=== PATIENT | male | born 1935 | race Caucasian/White ===

== ENCOUNTER → 2017-05-29 | Outpatient (CLI) | payer MEDICARE ==
[~2017-05-29] MED LIST: ADJUSTABLE COMM1 MIS; ASPI1TAB57 PO; ASPI81TA82 PO; BIOT10TA PO; CALC1TAB87 PO; CPMMACHINE; DIPH2.5T14 PO; FENO145T2 PO; FIBECHW2 CHEW; FLUT50SP EACH NARE; GLIM1TAB PO; HYDR-3366 PO; IPRA0.06 EACH NARE; LISI-363 PO; LISI-519 PO; MAPA500T PO; OMEP20TA PO; OMEP20TA93 PO; PROBCAP4 PO; SACC1CAP3 PO; TERA2CAP3 PO; TRAM50TA PO; VERA1TAB17 PO; VERA240T18 PO; VITA1000 PO; VITA200017 PO; WALKER WHEELS/F1 MIS; ZANT150T2 PO
[2017-05-29 08:33] LABS: HEMATOCRIT 40.7 % (39.0-51.0); MEAN CELL VOLUME 90.2 FL (80.0-100.0); MEAN CORPUSCULAR HEMOGLOBIN 30.8 PG (27.0-34.0); MEAN CORPUSCULAR HGB CONC 34.2 % (32.0-36.0); PLATELET COUNT 300 TH/MM3 (150-450); RED BLOOD COUNT 4.51 MIL/MM3 (4.50-5.90); RED CELL DISTRIBUTION WIDTH 14.1 % (11.6-17.2); REVIEW FLAG FINAL; WHITE BLOOD COUNT 6.7 TH/MM3 (4.0-11.0)
[2017-05-29 08:42] LABS: APTT (PATIENT) 26.3 SEC (24.3-30.1); PROTHROMBIN TIME - PATIENT 10.6 SEC (9.8-11.6)
[2017-05-29 09:07] LABS: POTASSIUM 4.4 MEQ/L (3.5-5.1)
[2017-05-29 09:08] LABS: BICARBONATE 25.7 MEQ/L (21.0-32.0)
[2017-05-29 14:23] LABS: BLOOD, URINE NEG (NEG); GLUCOSE,URINE NEG (NEG); HYALINE CAST, URINE 3 /lpf (RARE); KETONE, URINE NEG (NEG); NITRITE,URINE NEG (NEG); TRANSITIONAL EPI CELLS, URINE <1 /hpf; URINE COLOR YELLOW (YELLW/STRAW)
[2017-05-29 14:27] LABS: COMMENT (UR) CULT NOT INDICATED; CULTURE IF INDICATED CULT NOT INDICATED
--- NOTE | 2017-05-29 21:23 | EKG ---
Date Performed: 05/29/2017 Time Performed: 08:07:14 PTAGE: 82 years EKG: Sinus rhythm WITH FIRST DEGREE AV BLOCK ABNORMAL ECG PREVIOUS TRACING : 01/12/2012 09.30 Compared to prior tracing no significant change DOCTOR: Debbie Romero Interpretating Date/Time 05/29/2017 21:22:14
== END ==
LOC: CPRE 07:45
PROVIDERS: ATTEND Surgery
DX: Z01.810 Encounter for preprocedural cardiovascular examination (principal); Z01.812 Encounter for preprocedural laboratory examination; Z79.01 Long term (current) use of anticoagulants; R94.31 Abnormal electrocardiogram [ECG] [EKG]
CPT/HCPCS: 36415; 80051; 81001; 85027; 85610; 85730; 93005

== ENCOUNTER 2017-06-04 05:22 | Inpatient (IN) | payer MEDICARE ==
--- NOTE | 2017-05-30 11:09 | MH ---
cc: Lindy WAYNE M.D. DATE OF ADMISSION: 06/04/2017 PREOPERATIVE DIAGNOSIS Osteoarthritic degeneration left knee, now being admitted for left total knee arthroplasty. HISTORY OF PRESENT ILLNESS This is a pleasant 82-year-old male who is being admitted today for left total knee arthroplasty due to severe painful osteoarthritic degeneration left knee. OTHER PAST HISTORY 1. He has had a right total knee done in the past. 2. History of tonsillectomy. 3. Arthroscopic surgery on his knees as well. 4. He has a history of hypertension. 5. Dizziness. 6. Arthritis. MEDICATION 1. He currently takes lisinopril 2. Verapamil 3. Tramadol for pain 4. Ipratropium bromide 5. Fluticasone 6. Fenofibrate 7. Baby aspirin a day. REVIEW OF SYSTEMS Noncontributory. FAMILY HISTORY Noncontributory. SOCIAL HISTORY He does not smoke. Drinks maybe two to three times a weekend. ALLERGIES SULFA. PHYSICAL EXAMINATION GENERAL: We find a 82-year-old male, well-developed, well-nourished, oriented x3, complaining of pain in his left VITAL SIGNS: Blood pressure 132/80, pulse 70 and regular, respirations 18, temperature 97.7, pulse oximetry 98% on room air. HEENT: Eyes PERRLA, EOMI. Ears, nose, mouth clear. NECK: Supple. LUNGS: Clear. HEART: Regular rate. ABDOMEN: Soft. Positive bowel sounds. Nontender. EXTREMITIES: Reveals his left knee to have crepitance on range of motion, lacks 5 degrees short of full extension at 90 degrees of flexion. Neurovascularly intact to his toes. IMPRESSION AT THIS TIME Severe painful osteoarthritic degeneration, left knee. PLAN Admission for left total knee arthroplasty today. The patient understands the procedure well and was given prescription for postoperative pain and anticoagulation control in the office. Understands the use of Hibiclens scrub and Bactroban preoperatively and plans on going home after surgical stay in the hospital. MD OLGA Francis/VALERIA /10:53 AM /10:58 AM
[~2017-06-04 05:22] MED LIST changes: -ADJUSTABLE COMM1 MIS; -ASPI81TA82 PO; -CPMMACHINE; -FIBECHW2 CHEW; -GLIM1TAB PO; -HYDR-3366 PO; -LISI-363 PO; -OMEP20TA PO; -PROBCAP4 PO; -TERA2CAP3 PO; -VERA240T18 PO; -VITA200017 PO; -WALKER WHEELS/F1 MIS
[2017-06-04] MEDS ORDERED: SODIUM CHLOR 0.9% 250 ML INJ 250 ML ONE (05:57)
[2017-06-04] MEDS ORDERED: VANCOMYCIN HCL 1000 MG VIAL ONE (05:57)
[2017-06-04] MEDS ORDERED: CHLORHEXIDINE GLUCONATE 4% SOLN 120 ML BTL TOPICAL SCH (06:15)
[2017-06-04] MEDS ORDERED: VANCOMYCIN 1000 MG/NS 250 ML (for <70 kg) IV SCH ×2 (06:15)
[2017-06-04] MEDS ORDERED: METOPROLOL TARTRATE 25 MG TAB PO PRN (06:15)
[2017-06-04] MEDS ORDERED: CHLORHEXIDINE GLUCONATE 2 % 1 PACK (2 CLOTHS) TOPICAL PRN (06:15)
[2017-06-04] MEDS ORDERED: ceFAZolin 2 GM PREMIX 50 ML IV SCH (06:15)
[2017-06-04] MEDS ORDERED: POVIDONE IODINE 5% (ANTISEPSIS KIT) 4 APPLICATIONS EACH NARE PRN (06:15)
[2017-06-04] MEDS ORDERED: LACTATED RINGER'S 1000 ML IV PRN (06:15)
[2017-06-04] MEDS ORDERED: ceFAZolin INJ 1,000 MG VIAL ONE (06:48)
[2017-06-04] MEDS ORDERED: BUPIVACAINE LIPOSOME PF 1.3% 20 ML VIAL ONE (07:16)
[2017-06-04] MEDS ORDERED: DIPHENOXYLATE/ATROPINE 2.5 MG/0.025 MG TAB PO PRN (07:45)
--- NOTE | 2017-06-04 07:53 | HHI.FF ---
Face to Face Verification Diagnosis: (1) Status post total left knee replacement Physical Therapy Gait training Knee: Total knee, Protocol: Left, Full weight bearing Canvas Knee Splint: When in bed & 2 pillows btw thighs Nursing RN: 3 days/week x 2 weeks Nursing: Dressing changes Dressing Changes: Daily dressing change, 4x4s, Gauze, Paper tape I have seen patient Jose Eduardo Cabral on 06/04/17. My clinical findings support the need for the requested home health care services because: Limited ability to care for self High risk of falls I certify that my clinical findings support that this patient is homebound because: Unsteady gait/balance Lindy Lopez MD Jun 04, 2017 07:53
[2017-06-04] MEDS ORDERED: ADJUSTABLE COMM1 MIS (07:55)
[2017-06-04] MEDS ORDERED: WALKER WHEELS/F1 MIS (07:56)
[2017-06-04] MEDS ORDERED: CPMMACHINE (07:56)
[2017-06-04] MEDS ORDERED: ONDANSETRON HCL 4 MG/2 ML VIAL IVP PRN (08:00)
[2017-06-04] MEDS ORDERED: SODIUM CHLORIDE 0.9% FLUSH 5 ML FLUSH IVF PRN (08:00)
[2017-06-04] MEDS ORDERED: TEMAZEPAM 15 MG CAP PO PRN (08:00)
[2017-06-04] MEDS ORDERED: MORPHINE SULFATE 4 MG/ML INJ IV PUSH PRN (08:00)
[2017-06-04] MEDS ORDERED: NALOXONE HCL 0.4 MG/ML AMP IV PUSH PRN (08:00)
[2017-06-04] MEDS ORDERED: ACETAMINOPHEN 325 MG TAB PO PRN (08:00)
[2017-06-04] MEDS ORDERED: Post-op Orders (for Pharmacy) MISC XX ONE (08:00)
[2017-06-04] MEDS ORDERED: EXPAREL PERI-ARTICULAR INJECTION (TOTAL VOL. 100 ML) P-ARTICULR SCH ×2 (08:00)
[2017-06-04] MEDS ORDERED: TRANEXAMIC ACID INJ 905 MG in SODIUM CHLORIDE 0.9% INJ 100 ML IV SCH ×2 (08:00→11:00)
[2017-06-04] MEDS ORDERED: TRANEXAMIC ACID INJ 0 MG in SODIUM CHLORIDE 0.9% INJ 100 ML IV SCH (08:00)
[2017-06-04] MEDS ORDERED: KETAMINE HCL 500 MG/5 ML VIAL ONE (08:51)
[2017-06-04] MEDS ORDERED: DEXAMETHASONE SOD PHOS 4 MG/ML VIAL ONE (08:53)
[2017-06-04] MEDS: SODIUM CHLORIDE 0.9% FLUSH 5 ML FLUSH IVF SCH ×2 (09:00→21:47)
[2017-06-04] MEDS ORDERED: NON-FORMULARY DRUG (Biotin 10 MG) PO SCH (09:00)
[2017-06-04] MEDS ORDERED: NON-FORMULARY DRUG (Saccharomyces Boulardii (Probiotic) 250 MG) PO SCH (09:00)
[2017-06-04] MEDS: PANTOPRAZOLE SOD 20 MG DELAYED RELEASE TAB PO SCH (09:45)
[2017-06-04] MEDS ORDERED: IPRATROPIUM NASAL PRN (09:45)
[2017-06-04] MEDS ORDERED: PROPOFOL 500 MG/50 ML INJ 50 ML ONE (09:54)
[2017-06-04] MEDS: ASPIRIN EC 81 MG TABEC PO SCH (10:00)
[2017-06-04] MEDS: FLUTICASONE PROPIONATE 50 MCG/ACT 16 GM NASAL SPRAY EACH NARE SCH (10:00)
[2017-06-04] MEDS: LISINOPRIL 5 MG TAB PO SCH ×2 (10:00→21:48)
[2017-06-04] MEDS: FENOFIBRATE 145 MG TAB PO SCH (10:00)
[2017-06-04] MEDS: CALCIUM/VITAMIN D 250 MG/125 U TAB PO SCH (10:00)
[2017-06-04] MEDS: CHOLECALCIFEROL (VIT D3) 1000 UNIT TAB PO SCH (10:00)
[2017-06-04] MEDS: VERAPAMIL HCL 240 MG SUSTAINED RELEASE TAB PO SCH (10:00)
[2017-06-04] MEDS: LACTATED RINGER'S 1000 ML INJ 1,000 ML IV SCH ×2 (11:05→21:48)
[2017-06-04] MEDS ORDERED: *morphine SULFATE 8 MG/ML PERIprocedure ONLY ONE (11:09)
--- NOTE | 2017-06-04 11:10 | MP ---
cc: Lindy LOPEZ M.D. DATE OF SURGERY 06/04/2017 PREOPERATIVE DIAGNOSIS Osteoarthritic degeneration left knee. POSTOPERATIVE DIAGNOSIS Osteoarthritic degeneration left knee. SURGERY PERFORMED Left total knee arthroplasty. COMPONENTS USED Consensus components with Bespoke protocol, size 5 femur, 4 tibia, 3 patella, 10 insert with one drain utilized and two batches of DePuy cement. SURGEON Dr. Lopez C CONSULTANT Rasheeda Vieira, FAHAD ANESTHESIA Spinal block PROCEDURE After successful induction of anesthesia, the patient is placed on the operating room table in the supine position. The knee is prepped and draped in the usual manner. A tourniquet is inflated at the upper thigh and set to 300 mmHg pressure after exsanguination of the lower extremity. A longitudinal incision is made extending from 3 inches proximal to the superior pole of the patella, across the patella in longitudinal fashion, and down past the insertion of the tibial tubercle into the proximal tibia. The incision is carried down through subcutaneous tissue along the medial aspect of the patella and retinaculum, down through the capsule to expose the knee joint. The patella and patellar tendon are freed up enough to allow the patella to be inverted and retracted off the lateral side of the knee joint. The knee joint is left exposed. Small osteophytes are removed. All soft tissue is removed to allow proper position of the femoral and tibial cutting jig guide. The first femoral jig is then inserted along the distal end of the femur after first measuring to decide whether this is a small, medium, or large component. The notch is then drilled and the tibial cutting guide inserted into the femoral cutting guide, along with the ankle brace to allow for proper measurement of the tibial cutting surface that needed to be resected. Pins are inserted into the tibial cutting jig and femoral cutting jig to hold them in place. An oscillating saw is then used to resect the surface of the tibia. The surface of the tibia is then completely removed using sharp and blunt dissection. The anterior and posterior cuts of the femur are then made as well using an oscillating saw through the cutting guide. All guides are then removed and the varus/valgus angulation cutting guide applied to the femur for proper measurement of the proper amount of valgus. The anterior cutting guide for the femur is then inserted at the anterior femoral cuts made. Next, the first block trial is inserted into the femur to allow for proper condyle drill holes to be made which are then made followed by removal of the bone between the condyles using an oscillating saw as well as the bone removed at the most posterior surface of the condyle. After this, this guide is removed and the chamfer cuts made using the chamfer cutting guide from both anterior and posterior. Next, the femoral trial is then inserted, the tibial surface reflected anterior to expose the tibial surface and a tibial stem guide is inserted after first measuring for a standard, standard plus, large, or large plus surface to be used. After the stem is impacted the trial tibial surface is applied followed by the trial meniscal components. After full range of motion is found with the appropriate length meniscal components varying the patella is prepared by resecting the posterior aspect of the patella using an oscillating saw, inserting a trial. The trial is then removed and the cruciate cutting guide applied using the bur to cut the cruciate cuts. After cruciate cuts are made all trials are removed. The wound is irrigated copiously with antibiotic solution and Water Pik and the actual components inserted into place using Consensus components with Bespoke protocol, size 5 femur, 4 tibia, 3 patella, 10 insert with one drain utilized and two batches of DePuy cement. After the cement has hardened and the components are found to have full range of motion with no instability, the tourniquet is deflated, total tourniquet time being 51 minutes at 300 mmHg pressure. 120 cc of Exparel was used around the knee joint for extra pain control. 1 cc of Steffany was used to help control bleeding and one Hemovac drain was left in place. The wound again is irrigated copiously with antibiotic solution, meticulous hemostasis achieved. The deep fascia was approximated with running #2 Quill, the subcutaneous tissue approximated using interrupted 2-0 and 3-0 Monocryl suture. Lateral retinacular release was basically left open but a few sutures of #1 Vicryl used to help repair it as well. Full range of motion of the knee was appreciated with no instability. The skin was approximated with subcuticular 3-0 Monocryl sutures, Steri-Strips and sterile dressing applied and knee immobilizer. ESTIMATED BLOOD LOSS 200 cc. COUNTS Sponge and suture counts were correct. The patient tolerated the procedure well and left the operating room in satisfactory condition. Rasheeda GIORDANO was present during the entire procedure to include patient positioning and the procedure. The medical necessity of a nurse practitioner transportation assistant was indicated in this case due to the surgical complexity of the case itself. During the surgical case the surgical services tech was working the back table while my surgical pathologist GIULIANA was directly assisting me. J. Tito Lopez MD JRAlexandria/SSB /10:33 AM /10:57 AM
--- NOTE | 2017-06-04 11:35 | RADRPT ---
EXAM DATE/TIME: 06/04/2017 11:03 [facility] COMPARISON: No previous studies available for comparison. INDICATIONS : Left sven prosthesis. MEDICAL HISTORY : None. SURGICAL HISTORY : Total knee replacement, right. ENCOUNTER: Initial ACUITY: 1 day PAIN SCORE: Non-responsive. LOCATION: Left knee FINDINGS: 2 views of the knee show a total knee prosthesis in good position. No fracture or dislocation is obse rved. Soft tissue swelling is noted. Surgical drain noted. Atherosclerotic calcifications involving t he popliteal artery. CONCLUSION: Total knee arthroplasty in good position. Sukhjinder Soliz Jr., MD on June 04, 2017 at 11:33 Board Certified Radiologist. This report was verified electronically.
[2017-06-04] MEDS: ACETAMINOPHEN/HYDROcodone 325 MG/7.5 MG TAB PO PRN ×3 (13:02→22:41)
[2017-06-04 15:00] VITALS: BP 143/63; PULSE 69; RESP 18; TEMP 95.8; O2SAT 97
--- NOTE | 2017-06-04 18:52 | HHI.PR ---
Immediate Post Op Note Procedure Date: Jun 04, 2017 Pre Op Diagnosis: Osteoarthritic degeneration left knee Post Op Diagnosis: Osteoarthritic degeneration left knee Surgeon: Lindy Lopez MD Truckload Owner Operator(s): Adina GIORDANO Procedure: Left total knee Arthroplasty Complications: none Specimen(s) removed: none Estimated blood loss: 200 cc Anesthesia: Spinal Drains: Hemovac IVF Urinary Output (mLs): 0 (no galaviz) Tourniquet time (min at mmHg) 50 mins at 300mmHg Patient to: PACU Patient Condition: Good Implant/Devices: SEE IMPLANT LOG (if applicable) Date/Time of Procedure: SEE SURGICAL CARE RECORD Adina Vieira Jun 04, 2017 18:52
[2017-06-04 19:00] VITALS: BP 123/68; PULSE 88; RESP 17; TEMP 96.4; O2SAT 97
[2017-06-04] MEDS: FAMOTIDINE 20 MG TAB PO SCH (21:47)
[2017-06-05] VITALS: BP 153/77; PULSE 82; RESP 16; TEMP 97.6; O2SAT 98
[2017-06-05] MEDS: ACETAMINOPHEN/HYDROcodone 325 MG/7.5 MG TAB PO PRN ×5 (02:33→21:59)
[2017-06-05 04:00] VITALS: BP 176/80; PULSE 89; RESP 16; TEMP 96.5; O2SAT 94
[2017-06-05 05:08] LABS: HEMATOCRIT 35.2 % (39.0-51.0); REVIEW FLAG FINAL
[2017-06-05 08:00] VITALS: BP 131/83; PULSE 87; RESP 16; TEMP 96.7; O2SAT 95
[2017-06-05] MEDS: PANTOPRAZOLE SOD 20 MG DELAYED RELEASE TAB PO SCH (08:31)
[2017-06-05] MEDS: LISINOPRIL 5 MG TAB PO SCH ×2 (08:31→21:57)
[2017-06-05] MEDS: FENOFIBRATE 145 MG TAB PO SCH (08:31)
[2017-06-05] MEDS: CALCIUM/VITAMIN D 250 MG/125 U TAB PO SCH (08:31)
[2017-06-05] MEDS: VERAPAMIL HCL 240 MG SUSTAINED RELEASE TAB PO SCH (08:32)
[2017-06-05] MEDS: CHOLECALCIFEROL (VIT D3) 1000 UNIT TAB PO SCH (08:32)
[2017-06-05] MEDS: FLUTICASONE PROPIONATE 50 MCG/ACT 16 GM NASAL SPRAY EACH NARE SCH (08:33)
[2017-06-05] MEDS: FAMOTIDINE 20 MG TAB PO SCH ×2 (08:33→21:57)
[2017-06-05] MEDS: LACTATED RINGER'S 1000 ML INJ 1,000 ML IV SCH ×2 (08:33→22:30)
[2017-06-05] MEDS: ASPIRIN EC 81 MG TABEC PO SCH (08:33)
[2017-06-05] MEDS: SODIUM CHLORIDE 0.9% FLUSH 5 ML FLUSH IVF SCH ×2 (08:36→21:59)
[2017-06-05] MEDS: APIXABAN 2.5 MG TABLET PO SCH ×2 (10:49→21:58)
--- NOTE | 2017-06-05 11:52 | PD.ORT.PN ---
Subjective Subjective Remarks Pt basically comfortable with no complaints. Objective Vitals Vital Signs Date Time Temp Pulse Resp B/P (MAP) Pulse Ox O2 Delivery O2 Flow Rate FiO2 06/05/17 04:00 96.5 89 16 176/80 (112) 94 06/05/17 00:00 97.6 82 16 153/77 (102) 98 06/04/17 19:00 96.4 88 17 123/68 (86) 97 06/04/17 18:40 16 06/04/17 15:00 95.8 69 18 143/63 (89) 97 06/04/17 14:02 16 I/O 06/04/17 06/04/17 06/04/17 06/05/17 06/05/17 06/05/17 06:59 14:59 22:59 06:59 14:59 22:59 Intake Total 700 ml 580 ml 580 ml Output Total 3230 ml 180 ml 650 ml Balance -2530 ml 400 ml -70 ml Intake Oral 480 ml 480 ml IV Total 700 ml 100 ml 100 ml Output Urine Total 650 ml Drainage Total 30 ml 180 ml Estimated Blood Loss 200 ml Other 3000 ml # Voids 3 # Bowel Movements 0 0 Result Diagram: 06/05/17 0448 Objective Remarks Dressing dry and intact. Still blood draining through hemovac. NV intact. Sitting up in chair. No calf tenderness, Assessment & Plan Ortho Post Op Day #: 1 Problem List: Assessment and Plan OOB, dc hemovac when drainage less than 60cc per 8 hours. Cont PT. Lindy Lopez MD Jun 05, 2017 11:52
[2017-06-05 12:00] VITALS: BP 119/58; PULSE 79; RESP 16; TEMP 96.7; O2SAT 96
[2017-06-05 16:00] VITALS: BP 168/79; PULSE 75; RESP 16; TEMP 97.2; O2SAT 96
[2017-06-05] MEDS: diphenhydrAMINE HCL 50 MG/ML VIAL IV PUSH PRN ×2 (16:03→21:58)
[2017-06-05 21:03] VITALS: BP 162/72; PULSE 79; RESP 20; TEMP 97.5; O2SAT 95
[2017-06-05] MEDS: DOCUSATE SODIUM 100 MG CAP PO SCH (21:57)
[2017-06-05] MEDS: MULTIVITAMINS/MINERALS THERAPEUTIC TAB PO SCH (21:58)
[2017-06-06 00:40] VITALS: BP 156/66; PULSE 78; RESP 19; TEMP 97.7; O2SAT 96
[2017-06-06 05:35] LABS: HEMATOCRIT 32.4 % (39.0-51.0); REVIEW FLAG FINAL
[2017-06-06 08:00] VITALS: BP 174/91; PULSE 84; RESP 20; TEMP 97.8; O2SAT 95
[2017-06-06] MEDS: CALCIUM/VITAMIN D 250 MG/125 U TAB PO SCH (08:03)
[2017-06-06] MEDS: LISINOPRIL 5 MG TAB PO SCH (08:03)
[2017-06-06] MEDS: CHOLECALCIFEROL (VIT D3) 1000 UNIT TAB PO SCH (08:03)
[2017-06-06] MEDS: PANTOPRAZOLE SOD 20 MG DELAYED RELEASE TAB PO SCH (08:04)
[2017-06-06] MEDS: MULTIVITAMINS/MINERALS THERAPEUTIC TAB PO SCH (08:04)
[2017-06-06] MEDS: ACETAMINOPHEN/HYDROcodone 325 MG/7.5 MG TAB PO PRN ×3 (08:04→16:26)
[2017-06-06] MEDS: FENOFIBRATE 145 MG TAB PO SCH (08:04)
[2017-06-06] MEDS: DOCUSATE SODIUM 100 MG CAP PO SCH (08:05)
[2017-06-06] MEDS: VERAPAMIL HCL 240 MG SUSTAINED RELEASE TAB PO SCH (08:05)
[2017-06-06] MEDS: FLUTICASONE PROPIONATE 50 MCG/ACT 16 GM NASAL SPRAY EACH NARE SCH (08:05)
[2017-06-06] MEDS: FAMOTIDINE 20 MG TAB PO SCH (08:05)
[2017-06-06] MEDS: SODIUM CHLORIDE 0.9% FLUSH 5 ML FLUSH IVF SCH (08:05)
[2017-06-06] MEDS ORDERED: BACITRACIN OINT 0.9 GM PKT TOP PRN (10:15)
[2017-06-06] MEDS: APIXABAN 2.5 MG TABLET PO SCH (10:47)
[2017-06-06] MEDS: LACTATED RINGER'S 1000 ML INJ 1,000 ML IV SCH (10:47)
[2017-06-06 12:00] VITALS: BP 123/58; PULSE 67; RESP 20; TEMP 96.6; O2SAT 95
[2017-06-06 13:43] VITALS: O2SAT 95
--- NOTE | 2017-06-06 15:17 | PD.ORT.PN ---
Subjective Subjective Remarks Pt basically comfortable with no complaints. Objective Vitals Vital Signs Date Time Temp Pulse Resp B/P (MAP) Pulse Ox O2 Delivery O2 Flow Rate FiO2 06/06/17 13:43 95 06/06/17 12:00 96.6 67 20 123/58 (79) 95 06/06/17 09:04 16 06/06/17 08:00 97.8 84 20 174/91 (118) 95 06/06/17 00:40 97.7 78 19 156/66 (96) 96 06/05/17 21:03 97.5 79 20 162/72 (102) 95 06/05/17 16:00 97.2 75 16 168/79 (108) 96 I/O 06/05/17 06/05/17 06/05/17 06/06/17 06/06/17 06/06/17 07:00 15:00 23:00 07:00 15:00 23:00 Intake Total 580 ml 240 ml Output Total 650 ml 135 ml 80 ml 600 ml Balance -70 ml -135 ml -80 ml -360 ml Intake Oral 480 ml 240 ml IV Total 100 ml Output Urine Total 650 ml 600 ml Drainage Total 135 ml 80 ml # Bowel Movements 0 Result Diagram: 06/06/17 0520 Objective Remarks Dressing dry and intact. Hemovac out. Able to stand and ambulate with walker independently. NV intact. No calf tenderness. Assessment & Plan Ortho Post Op Day #: 2 Problem List: Assessment and Plan Home today with home healthcare and physical therapy. Appointment at the office next week. Lindy Lopez MD Jun 06, 2017 15:17
--- NOTE | 2017-06-06 15:19 | HHI.DS ---
Discharge Summary Admission Date Jun 04, 2017 at 05:22 Discharge Date: Jun 06, 2017 Admitting Diagnosis Osteoarthritic degeneration left knee Diagnosis: (1) Status post total left knee replacement Diagnosis: Principal ICD Codes: Z96.652 - Presence of left artificial knee joint Brief History This is a 82 year old male patient CBC/BMP: 06/06/17 0520 Significant Findings Laboratory Tests Test 06/05/17 04:48 06/06/17 05:20 Hemoglobin 11.8 GM/DL (13.0-17.0) 11.2 GM/DL (13.0-17.0) Hematocrit 35.2 % (39.0-51.0) 32.4 % (39.0-51.0) PE at Discharge Dressing dry and intact. Hemovac out. Able to stand and ambulate with walker independently. NV intact. No calf tenderness. Hospital Course The patient underwent a left total knee arthroplasty on day of admission. He received a course of prophylactic IV antibiotics and within 23 hours started on anticoagulation therapy. He continued to improve remaining afebrile with stable vital signs. His Hemovac was removed on postoperative day #2. He was discharged in good condition on postoperative day 2 to home with home healthcare and good condition with instructions for continuation of care and follow-up in the office Pt Condition on Discharge: Good Discharge Disposition: Disch w/ Home Health Serv Discharge Instructions Diet Instructions: As Tolerated, No Restrictions Activities You Can Perform: Full Weight Bearing, Shower Only-No Bath Activities to Avoid: Bathing, Driving Lindy Lopez MD Jun 06, 2017 15:19
[2017-06-06] MEDS ORDERED: HYDR-3366 PO (15:53)
== END 2017-06-06 16:37 | disposition home health service (06) | DRG 470 ==
LOC: HSDI 05:22 → N06B 12:22
PROVIDERS: ADMIT Surgery; ATTEND Surgery
PROC: 3E0T3BZ Introduction of Anesthetic Agent into Peripheral Nerves and Plexi, Percutaneous Approach (ICD-10-PCS; 2017-06-04)
PROC: 0SRD0J9 Replacement of Left Knee Joint with Synthetic Substitute, Cemented, Open Approach (ICD-10-PCS; principal; 2017-06-04 07:45)
DX: M17.12 Unilateral primary osteoarthritis, left knee (principal); I10 Essential (primary) hypertension; Z96.651 Presence of right artificial knee joint; E66.9 Obesity, unspecified; K21.9 Gastro-esophageal reflux disease without esophagitis; E78.5 Hyperlipidemia, unspecified; Z87.891 Personal history of nicotine dependence; Z86.73 Personal history of transient ischemic attack (TIA), and cerebral infarction without residual deficits; Z79.01 Long term (current) use of anticoagulants; Z85.828 Personal history of other malignant neoplasm of skin
CPT/HCPCS: 73560; 85014; 85018; 86850; 86900; 86901; 94150; C1776; C9290; J0690; J1100; J1200; J2270; J3370; J7050; J7120

== ENCOUNTER 2018-04-26 05:17 | Inpatient (IN) ==
[~2018-04-26 05:17] MED LIST changes: -ASPI1TAB57 PO; -BIOT10TA PO; -CALC1TAB87 PO; -DIPH2.5T14 PO; -FENO145T2 PO; -FLUT50SP EACH NARE; -IPRA0.06 EACH NARE; -LISI-519 PO; -MAPA500T PO; +Metoprolol Tartrate 25 MG Tablet PO SCH; -OMEP20TA93 PO; -SACC1CAP3 PO; -TRAM50TA PO; -VERA1TAB17 PO; -VITA1000 PO; -ZANT150T2 PO
[2018-04-26] MEDS ORDERED: Dextrose 50% in Water 50 ML Vial IV.PUSH PRN ×2 (05:47→11:30)
[2018-04-26] MEDS ORDERED: Chlorhexidine Gluconate 2% 1 Pack (2 Cloths) TOPICAL ONE (05:57)
[2018-04-26] MEDS ORDERED: Metoprolol Tartrate 25 MG Tablet PO ONE (05:57)
[2018-04-26] MEDS ORDERED: ceFAZolin Inj 2,000 MG in Sodium Chlor 0.9% Inj 80 ML IV.SIG SCH (06:00)
[2018-04-26] MEDS ORDERED: Sodium Chloride 0.9% Irr Bot 500 ML, ceFAZolin Inj 500 MG IRRIGATION SCH ×2 (06:00)
[2018-04-26] MEDS ORDERED: Chlorhexidine 4% Topical 120 APPLIC/120 ML Bottle TOPICAL SCH (06:00)
[2018-04-26] MEDS ORDERED: Sodium Chlor 0.9% Inj 500 ML IV.SIG SCH (06:00)
[2018-04-26] MEDS ORDERED: Heparin - SQ 10,000 UNITS/ML Vial ONE (06:42)
[2018-04-26] MEDS ORDERED: ceFAZolin 2 GM Premix Inj 2 GM/50 ML PIGGYBACK IV.SIG ONE (06:43)
[2018-04-26] MEDS ORDERED: Insulin Regular (For Infusion) 100 UNIT in Sodium Chlor 0.9% Inj 99 ML IV.CONT PRN ×2 (07:00→13:00)
[2018-04-26] MEDS ORDERED: Sodium Chlor 0.9% Inj 77.5 ML, Papaverine Inj 60 MG, Nitroglycerin Inj 100 MCG, dilTIAZ... IRRIGATION SCH ×3 (07:00)
[2018-04-26] MEDS ORDERED: NITROGLYCERIN IV.CONT ONE (07:19)
[2018-04-26] MEDS ORDERED: Protamine Sulfate Inj 50 MG/5 ML Vial IV.CONT ONE (07:19)
[2018-04-26] MEDS ORDERED: Sodium Chlor 0.9% Inj 250 ML IV.CONT ONE (07:19)
[2018-04-26] MEDS ORDERED: Sodium Chlor 0.9% Inj 300 ML IV.CONT ONE (07:19)
[2018-04-26] MEDS ORDERED: Heparin - SQ 10,000 UNITS/ML Vial OTHER ONE (07:19)
[2018-04-26] MEDS ORDERED: Propofol Inj 500 MG/50 ML Vial IV.CONT ONE (07:19)
[2018-04-26] MEDS ORDERED: Glycopyrrolate 0.2 MG/ML Vial IV.PUSH ONE (07:19)
[2018-04-26] MEDS ORDERED: Normosol-R pH 7.4 Inj 1,000 ML IV.CONT ONE (07:19)
[2018-04-26] MEDS ORDERED: Phenylephrine/NS 1000 MCG/10ML Syringe IV.PUSH ONE (07:19)
[2018-04-26] MEDS ORDERED: Protamine Sulfate Inj 50 MG/5 ML Vial ONE (10:30)
[2018-04-26] MEDS ORDERED: fentaNYL Citrate Inj 100 MCG/2 ML Ampul IV.PUSH PRN (11:30)
[2018-04-26] MEDS ORDERED: Dexmedetomidine Inj 200 MCG in Sodium Chlor 0.9% Inj 48 ML IV.CONT PRN (11:30)
[2018-04-26] MEDS ORDERED: Potassium Chlor 20 mEq Premix 20 MEQ/100 ML PIGGYBACK IV.SIG PRN ×2 (11:30)
[2018-04-26] MEDS ORDERED: Metoprolol Inj 5 MG/5 ML Vial IV.PUSH PRN (11:30)
[2018-04-26] MEDS ORDERED: Potassium Chlor 40 mEq Premix 40 MEQ/100 ML PIGGYBACK ONE (11:30)
[2018-04-26] MEDS ORDERED: Post-op Orders (for Pharmacy) OTHER STA (11:30)
[2018-04-26] MEDS ORDERED: RESP: Racemic Epinephrine 2.25% 0.5 ML Neb NEB PRN (11:30)
[2018-04-26] MEDS ORDERED: Albumin Human 5% Inj 250 ML IV.SIG PRN (11:30)
[2018-04-26] MEDS ORDERED: Morphine Sulfate Inj 2 MG/ML Vial IV.PUSH PRN (11:30)
[2018-04-26] MEDS ORDERED: Calcium Chloride Inj 1 GM in Sodium Chlor 0.9% Inj 100 ML IV.SIG PRN (11:30)
[2018-04-26] MEDS ORDERED: Magnesium Sulfate Inj 2 GM in Sodium Chlor 0.9% Inj 96 ML IV.SIG PRN ×4 (11:30)
[2018-04-26] MEDS ORDERED: Calcium Chloride Inj 1 GM/10 ML Syringe IV.PUSH PRN (11:30)
--- NOTE | 2018-04-26 11:39 | P.OP ---
Anesthesia: GETA Surgeon: Bee Oleary MD Operation and Findings: PREPROCEDURE DIAGNOSES 1. Severe Multi Vessel Coronary Artery Disease. 2. Chronic kidney disease POSTPROCEDURE DIAGNOSES Same SURGICAL PROCEDURE 1. Off-pump Coronary Artery Bypass Grafting x 3 with Left Internal Mammary Artery (HUI) to Left Anterior Descending (LAD), reverse saphenous vein graft to obtuse Marginal branch of the left Circumflex artery, reverse saphenous vein graft to the posterior Descending branch of the right Coronary artery 2. Right leg Endoscopic Vein [place] 3. Intraoperative Vein Mapping. SURGEON Bee Oleary MD REPRINT SORTER MARCIE De Jesus ANESTHESIA General endotracheal RN IMMUNOLOGY Shawanda Barlow, GEORGI Emery MD PREPARATION ChloraPrep. COUNTS Needle, sponge, and instrument counts were correct. DRAINS Two 32-[place] mediastinal tubes. COMPLICATIONS None. INDICATIONS FOR PROCEDURE The patient is a 82-year-old presenting with chest pain. Patient was noted to have multi-vessel coronary artery disease. The patient is being brought to the operating room for surgical revascularization therapy. PROCEDURE Patient was brought to the operating room and placed supine on the OR table. Following the induction of adequate general endotracheal anesthesia and placement of appropriate monitoring devices, intraoperative vein mapping was performed which revealed marginal but usable-caliber conduit in the right thigh only. The patient was then prepped and draped in standard sterile fashion. Next , 2500 units of intravenous heparin was given. The right greater saphenous vein was harvested endoscopically. This appeared to be a useable-caliber conduit. Simultaneously, a median sternotomy was performed and the left internal mammary artery dissected free off the posterior sternal table. The patient was systemically heparinized and anticoagulation monitored by serial ACT measurements. The internal mammary artery had excellent pulsatile flow in it and was a good-caliber conduit. The pericardium was then divided in the midline, the cradle created and targets analyzed. At this point, all anastomoses were performed in a beating-heart fashion using the Mangstor stabilizing system. The left internal mammary artery was anastomosed to the distal LAD (1.75 mm) in an end-to-side fashion using 7-0 Prolene. Segment of saphenous vein graft was then anastomosed to the OM1 (2 mm) in an end-to-side fashion using 7-0 Prolene. The final segment was anastomosed to the RPDA (1.5 mm ) in an end-to-side fashion using 7-0 Prolene. Of note, all of his coronary vessels are very heavily and diffusely calcified. The distal anastomoses were performed in spared areas in between calcific disease. The proximal anastomoses were then constructed to the ascending aorta in a running manner using 6-0 Prolene. All anastomotic sites were inspected and appeared to be hemostatic and patent. Protamine solution was given. Strict hemostasis was assured. The closure was undertaken. 2 chest tubes were placed. The pericardium was reapproximated in the midline. The sternum was approximated using sternal wires. The muscular and fascial layer were then closed in 3 layers. The endoscopic vein harvest site was closed in 2 layers. The patient tolerated the procedure well and was transferred to CVICU in stable condition.
[2018-04-26] MEDS ORDERED: fentaNYL Citrate Inj 250 MCG/5 ML Ampul ONE (12:16)
[2018-04-26] MEDS: Potassium Chlor 20 mEq Premix 20 MEQ/100 ML PIGGYBACK IV.SIG PRN (12:40)
[2018-04-26 12:48] LABS: Hematocrit 26.9 % (39.0-51.0); Hemoglobin 8.9 gm/dL (13.0-17.0); Mean Corpuscular HGB Conc 33.2 % (32.0-36.0); Mean Corpuscular Hemoglobin 29.4 pg (27.0-34.0); Mean Corpuscular Volume 88.7 fL (80.0-100.0); Mean Platelet Volume 8.2 fL (7.0-11.0); Platelet Count 189 th/mm3 (150-450); Red Blood Count 3.03 mil/mm3 (4.50-5.90); Red Cell Distribution Width 14.8 % (11.6-17.2); White Blood Count 11.2 th/mm3 (4.0-11.0)
--- NOTE | 2018-04-26 12:57 | P.PNCV ---
- Note Subjective/Hospital Course: 82-year-old male; intially seen 04/18/[address] Efra Vieyra, Dr. Omar Keith, who has been complaining of some fatigue over the past 6-8 months , he gets tired easily and has some nausea. He denies any chest pain or shortness of breath. He denies any syncope, no palpitations. He underwent cardiac catheterization for atypical exertional symptoms, anginal equivalent. Risk factors including age, hyperlipidemia, former diabetic now diet controlled, hypertension, Cardiac cath revealed a circumflex with 80%, the RCA 90%, the mid distal LAD 75%. He has had a prior echo that was completed on 01/15/2015, which showed an ejection fraction of 55%-60%, mild mitral regurgitation, trace tricuspid regurgitation. 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 Off-pump Coronary Artery Bypass Grafting x 3 with Left Internal Mammary Artery (HUI) to Left Anterior Descending (LAD), reverse saphenous vein graft to obtuse Marginal branch of the left Circumflex artery, reverse saphenous vein graft to the posterior Descending branch of the right Coronary artery 2. Right leg Endoscopic Vein [place] Objective: Vital Signs - 24 hr 04/26/18 06:10 04/26/18 12:02 Temperature 97.8 F Pulse Rate 57 L Respiratory Rate 16 12 Blood Pressure 145/69 H Pulse Oximetry 96 92 L Labs: Laboratory Results - last 12 hr 04/26/18 06:15 Blood Type O Positive Antibody Screen Negative MTS Gel Crossmatch See Detail Result Diagrams: 04/26/18 12:15 04/26/18 12:15
--- NOTE | 2018-04-26 13:02 | P.DCO ---
- Diagnosis (1) CAD (coronary artery disease), [place] coronary artery Status: Acute (2) Hyperlipidemia Status: Chronic (3) Hypertension Status: Chronic (4) Chronic kidney disease Status: Chronic (5) S/P CABG x 3 Status: Acute - Home Health Nursing Order: Medical education, Signs/symptoms of disease process, Wound care and dressing changes, Nursing assessment with vital signs Instructions: Heart and Vascular Surgery patients *Special attention to sternal dressing Mandatory frequency Assess and evaluation, 4 days in a row The next week 3X week 2 times a week for 4 weeks 1 time a week for 5 weeks Schedule Heart and Vascular patients for full 60 day certification period Initial visit Review Open Heart Surgery Discharge Instructions (Sternal precautions, Activity, Elastic hose, Incision care, Driving, Incentive spirometry, Smoking, [place], Work and other) Need Betadine to paint incision Medication reconciliation Importance of follow up care/ check on appointments Make calendar record temperature daily When to call [facility] Home nurse, review instructions, phone list Incentive Spirometry, demonstration Visit 1- Begin discharge instruction for patient family and/ or caregiver using teach back method- Signs and symptoms of infection Disease characteristics Medicines and side effects Foods and nutrition/ appetite Infection control/ hand washing/ hygiene Visit 2- Continue teaching Discharge instructions- include additional information on smoking cessation , sternal dressing (sternal vac) Visit 3- Continue teaching- Cough and deep breathing, incision monitoring. Choose my plate Visit 4- Continue teaching- Discuss limitations Discuss how they are feeling Discuss progress toward goals Remaining visits- continue teaching and monitoring For any questions please call : Sunday 8am-5pm Heart & Vascular Surgery Office ( Dr. Oleary & Dr. Kapadia), After Hours / Nights (5pm -8am) Weekends and Holidays Please call [facility] Cardiac Intermediate Care Unit (CIC) Charge Nurse Incentive spirometry Q1 hr x 10, while awake, also use acapella device hourly whole awake Sternal Breast Bone Precautions: NO pushing or pulling, ( pt must use sternal pillow to support chest with all activities and with coughing ( takes up to 3 months breast bone to heal ) Daily incision care: ok to shower daily, no tub bath. Wash all incisions with liquid dial soap, clean wash cloth to each site, rinse and pat dry. Observe for any signs of infection, such as drainage which is dark yellow, [place], green or foul smelling. Immediately report to the surgeon any drainage from the chest incision, or legs, and for any abnormal drainage from the chest tube sites. Notify surgeon if any temp >101.5 degrees F. When specialty dressing removed/ or if you do not have one, continue to shower daily as above, then rinse and pat incision dry and paint with betadine daily x 5 days. Allow steri strips to fall off if you have any. Avoid lotions, creams, salves, oils, etc. for the first month Please see attached forms for additional instructions regarding post Open Heart specialty wound vacuum dressings. CHAPO or Prevena , Dressing to be removed by Nursing staff on __05/03/18 F/U appointment: as per DC instructions: PCP in 2 weeks, CV surgeon 2 weeks, Agriculture Laboratory Technician 3-4 weeks For any questions regarding incisions/ dressing / meds / post op care or above Symptoms, Sunday 8am-5pm Heart & Vascular Surgery Office ( Dr. Oleary & Dr. Kapadia), After Hours / Nights (5pm -8am) Weekends and Holidays Please call [facility] Cardiac Intermediate Care Unit (CIC) Charge Nurse PREVENA Single Use Negative Wound Therapy System Caregiver Instruction Sheet 1. A Prevena dressing system was applied to the chest incision during surgery , to promote wound healing. It works via a suction device (negative pressure wound therapy) to remove low to moderate levels of exudate (drainage) and infectious materials. We recommend that the device stay in place for up to seven days, from day of surgery. 2. Day of Surgery___04/26/18 Day of Removal 05/03/18 3. The dressing should only be removed by a health rn homecare. Please arrange removal of device to coincide with Home Health visit and or with Nursing staff at Rehab 4. If skin reddening or irritation of skin occurs, or excessive drainage, please notify the Cardiovascular Surgeons office at [phone]. 5. Light showering is permissible; however the pump should be disconnected and placed in safe location, where it will not get wet. The dressing should not be exposed to direct spray or submerged in water. No bath tub / shower only. Ensure the end of the tubing attached to the dressing is facing down so that water does not enter the top of the tube. 6. To remove Prevena dressing: press purple button to turn off device / remove the suction. Then disconnect the tubing from the pump. The fixation strips should be stretched away from the skin and the dressing lifted at one corner and peeled back until it has been fully removed. 7. After removal, it is ok to shower daily using liquid dial soap and clean wash cloth, rinse and pat dry, and leave incision open to air dry. For any concerns regarding Prevena dressing, and or wounds, please contact Jaki Guadarrama, patient navigator at [phone] or notify the Cardiovascular Surgeons office at [phone]. - Case Management Consult Yes - Certification I have seen patient Jose Eduardo Cabral on 04/26/18. My clinical findings support the need for the requested home health care services because: Deconditioned with increased weakness I certify that my clinical findings support that this patient is homebound because: Post-op weakness
[2018-04-26 13:11] LABS: Carbon Dioxide 24.1 meq/L (21.0-32.0); Potassium 3.8 meq/L (3.5-5.1)
[2018-04-26 13:27] LABS: Total Protein 4.7 g/dL (6.4-8.2)
--- NOTE | 2018-04-26 13:36 | XR ---
EXAM DATE: 04/26/2018 11:30 AM EDT AGE/SEX: 82 years / Male INDICATIONS: Post-op CABG. CLINICAL DATA: This is the patient's initial encounter. Patient reports that signs and symptoms have been present for 1 day and indicates a pain score of Nonresponsive. MEDICAL/SURGICAL HISTORY: . Carcinoma, skin cancer. Gastroesophageal reflux disease. Cardiovasc ular disease. TIA, kidney disease, hypertension, anemia, barrettes esophagus. None. None. COMPARISON: [facility] [place]ST 2V PA&LAT, 04/18/2018. . FINDINGS: ET tube nasogastric tube in good position. Lungs are under aerated with moderate parenchymal changes left base. Mediastinal contours are partially obscured. Mediastinal drain and chest drain are evident . Central line in good position. CONCLUSION: Under aerated. Support apparatus including chest tubes in good position. Electronically signed by: Omar Lomax MD 04/26/2018 1:35 PM EDT
[2018-04-26] MEDS: Clevidipine Inj 25 MG/50 ML VIAL IV.CONT PRN (14:22)
[2018-04-26] MEDS ORDERED: Nitroglycerin Drip Premix 50 MG/250 ML BOTTLE IV.CONT PRN (17:15)
[2018-04-26] MEDS: ceFAZolin Inj 2,000 MG in Sodium Chlor 0.9% Inj 80 ML IV.SIG SCH (20:58)
[2018-04-26] MEDS: Carvedilol 12.5 MG Tablet PO SCH (20:59)
[2018-04-26] MEDS: Amiodarone 200 MG Tablet PO SCH (20:59)
[2018-04-27] MEDS: Clevidipine Inj 25 MG/50 ML VIAL IV.CONT PRN (02:06)
--- NOTE | 2018-04-27 03:29 | XR ---
EXAM DATE: 04/27/2018 5:00 AM EDT AGE/SEX: 82 years / Male INDICATIONS: Shortness of breath, possible pulmonary disease. CLINICAL DATA: This is the patient's subsequent encounter. Patient reports that signs and symptoms h ave been present for 2 days and indicates a pain score of 7/10. MEDICAL/SURGICAL HISTORY: Gastroesophageal reflux disease. Cardiovascular disease. Hypertensi on. Carcinoma, skin cancer. Gutierrez's esophagus. CABG. COMPARISON: [facility], CHEST 1V SINGLE AP, 04/26/2018. . FINDINGS: Left-sided and central chest tube present. Previous sternotomy. Mild basilar airspace disease. No pne umothorax. Left central line in superior vena cava. CONCLUSION: Interval extubation and removal of NG tube. Chest tubes and left central line remain without pneumoth orax. Stable basilar airspace disease. Electronically signed by: Mychal Stout MD 04/27/2018 3:27 AM EDT
[2018-04-27] MEDS: ceFAZolin Inj 2,000 MG in Sodium Chlor 0.9% Inj 80 ML IV.SIG SCH ×3 (04:51→20:05)
[2018-04-27 05:19] LABS: Hematocrit 29.4 % (39.0-51.0); Mean Corpuscular HGB Conc 34.1 % (32.0-36.0); Mean Corpuscular Hemoglobin 30.1 pg (27.0-34.0); Mean Corpuscular Volume 88.5 fL (80.0-100.0); Mean Platelet Volume 8.5 fL (7.0-11.0); Platelet Count 211 th/mm3 (150-450); Red Blood Count 3.32 mil/mm3 (4.50-5.90); White Blood Count 8.7 th/mm3 (4.0-11.0)
[2018-04-27 05:39] LABS: Calcium 7.7 mg/dL (8.5-10.1); Carbon Dioxide 23.5 meq/L (21.0-32.0); Magnesium 2.1 mg/dL (1.5-2.5); Potassium 3.9 meq/L (3.5-5.1)
[2018-04-27] MEDS: Potassium Chlor 20 mEq Premix 20 MEQ/100 ML PIGGYBACK IV.SIG PRN (06:13)
[2018-04-27] MEDS: Fenofibrate 145 MG Tablet PO SCH (08:34)
[2018-04-27] MEDS: Carvedilol 12.5 MG Tablet PO SCH ×2 (08:35→20:06)
[2018-04-27] MEDS: Amiodarone 200 MG Tablet PO SCH ×2 (08:35→20:06)
--- NOTE | 2018-04-27 09:52 | P.PNCV ---
- Note Subjective/Hospital Course: 82-year-old male; intially seen 04/18/[address] Efra Vieyra, Dr. Omar Keith, who has been complaining of some fatigue over the past 6-8 months , he gets tired easily and has some nausea. He denies any chest pain or shortness of breath. He denies any syncope, no palpitations. He underwent cardiac catheterization for atypical exertional symptoms, anginal equivalent. Risk factors including age, hyperlipidemia, former diabetic now diet controlled, hypertension, Cardiac cath revealed a circumflex with 80%, the RCA 90%, the mid distal LAD 75%. He has had a prior echo that was completed on 01/15/2015, which showed an ejection fraction of 55%-60%, mild mitral regurgitation, trace tricuspid regurgitation. 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 Off-pump Coronary Artery Bypass Grafting x 3 with Left Internal Mammary Artery (HUI) to Left Anterior Descending (LAD), reverse saphenous vein graft to obtuse Marginal branch of the left Circumflex artery, reverse saphenous vein graft to the posterior Descending branch of the right Coronary artery 2. Right leg Endoscopic Vein [place] 04/27 Doing well. Extubated and tolerating. On 2 L nasal cannula Hemodynamically stable Transfer to CPCU Maintain chest tubes for now Beta-jimenez therapy Incentive spirometry and ambulation Objective: Vital Signs - 24 hr 04/26/18 12:00 04/26/18 12:02 04/26/18 12:30 Temperature 97.5 F L 97.5 F L Pulse Rate 65 Respiratory Rate 12 12 Blood Pressure 123/68 Pulse Oximetry 92 L 92 L 04/26/18 13:05 04/26/18 14:50 04/26/18 16:00 Temperature 97.5 F L 97.5 F L Pulse Rate 65 Respiratory Rate 19 12 Blood Pressure 113/64 Pulse Oximetry 97 97 04/26/18 16:05 04/26/18 19:00 04/26/18 19:05 Temperature Pulse Rate 64 76 Respiratory Rate 18 18 Blood Pressure Pulse Oximetry 04/26/18 19:20 04/26/18 20:00 04/26/18 20:54 Temperature 97.7 F Pulse Rate 88 87 Respiratory Rate 18 18 16 Blood Pressure 146/60 H Pulse Oximetry 98 97 04/26/18 22:00 04/26/18 23:00 04/27/18 00:00 Temperature 98.9 F Pulse Rate 93 H 88 Respiratory Rate 18 18 Blood Pressure 167/64 H Pulse Oximetry 97 04/27/18 03:00 04/27/18 04:00 04/27/18 04:15 Temperature 99.4 F Pulse Rate 83 65 74 Respiratory Rate 18 14 Blood Pressure 118/66 Pulse Oximetry 97 04/27/18 05:00 04/27/18 07:00 04/27/18 08:00 Temperature 98.9 F Pulse Rate 88 73 73 Respiratory Rate 18 Blood Pressure 95/44 L 116/63 Pulse Oximetry 96 04/27/18 09:41 04/27/18 09:42 Temperature Pulse Rate 80 Respiratory Rate 18 Blood Pressure Pulse Oximetry 97 Labs: Laboratory Results - last 12 hr 04/26/18 04/27/18 04/27/18 23:08 02:05 04:23 WBC RBC Hgb Hct MCV MCH MCHC RDW Plt Count MPV Sodium Potassium Chloride Carbon Dioxide Anion Gap BUN Creatinine Estimated GFR POC Glucose 107 111 H 98 Random Glucose Calcium Magnesium 04/27/18 04/27/18 04/27/18 04:57 04:57 05:58 WBC 8.7 RBC 3.32 L Hgb 10.0 L Hct 29.4 L MCV 88.5 MCH 30.1 MCHC 34.1 RDW 15.0 Plt Count 211 MPV 8.5 Sodium 138 Potassium 3.9 Chloride 106 Carbon Dioxide 23.5 Anion Gap 9 BUN 19 H Creatinine 1.27 Estimated GFR 54 L POC Glucose 105 Random Glucose 97 Calcium 7.7 L Magnesium 2.1 04/27/18 04/27/18 08:14 09:06 WBC RBC Hgb Hct MCV MCH MCHC RDW Plt Count MPV Sodium Potassium Chloride Carbon Dioxide Anion Gap BUN Creatinine Estimated GFR POC Glucose 122 H 101 Random Glucose Calcium Magnesium Result Diagrams: 04/27/18 04:57 04/27/18 04:57
[2018-04-27] MEDS ORDERED: Sod Phosphate/Sod Biphosphate (Adult) Enema 133 ML Bottle RECTAL PRN (09:53)
[2018-04-27] MEDS ORDERED: Dextrose 50% in Water 50 ML Vial IV.PUSH PRN (09:53)
[2018-04-27] MEDS ORDERED: Bisacodyl 10 MG Supp RECTAL PRN (09:53)
[2018-04-27] MEDS: Insulin NovoLOG Aspart Correctional Sugar Inj SQ SCH ×4 (10:37→22:04)
--- NOTE | 2018-04-27 13:15 | ECG ---
Date Performed: 04/26/2018 Time Performed: 12:14:12 PTAGE: 82 years EKG: Sinus rhythm with borderline 1st degree A-V block. Slight inferolateral ST elevation seen in leads II, III, and a VF, and also in leads V3-V6 with slight reciprocal change. This may be inferolateral injury. Pericard itis is another possibility, but there are some slight reciprocal changes here. There are small infer ior Q waves present in leads III and aVF as well. Low voltage in precordial leads Compared to previou s tracing, the slight ST elevation and other reciprocal changes are new. Clinical correlation recomme nded. Abnormal ECG PREVIOUS TRACING : 05/29/2017 08.07 DOCTOR: Tito Llanos Interpretating Date/Time 04/27/2018 13:14:00
--- NOTE | 2018-04-27 13:16 | ECG ---
Date Performed: 04/27/2018 Time Performed: 07:28:30 PTAGE: 82 years EKG: Sinus rhythm with 1 PVC Inferior infarct - age undetermined Tall R -wave in V1 which could reflect inferoposterio r MA Compared to previous tracing, the slight ST elevation with reciprocal changes no longer present. This probably represents improvement or evolution of inferior MA with some posterolateral changes. A bnormal ECG PREVIOUS TRACING : 04/26/2018 12.14 DOCTOR: Tito Llanos Interpretating Date/Time 04/27/2018 13:15:41
[2018-04-27] MEDS: Docusate Sodium 100 MG Capsule PO SCH (20:06)
[2018-04-28] MEDS: ceFAZolin Inj 2,000 MG in Sodium Chlor 0.9% Inj 80 ML IV.SIG SCH (03:26)
[2018-04-28] MEDS: Insulin NovoLOG Aspart Correctional Sugar Inj SQ SCH ×4 (03:30→19:15)
[2018-04-28 04:34] LABS: Baso % (Auto) 0.2 % (0.0-2.0); Eos # (Auto) 0.1 th/mm3 (0.0-0.4); Eos % (Auto) 1.8 % (0.0-4.0); Hematocrit 27.7 % (39.0-51.0); Hemoglobin 9.4 gm/dL (13.0-17.0); Lymph # (Auto) 1.4 th/mm3 (1.0-4.8); Lymph % (Auto) 16.9 % (9.0-44.0); Mean Corpuscular HGB Conc 33.8 % (32.0-36.0); Mean Corpuscular Hemoglobin 29.9 pg (27.0-34.0); Mean Corpuscular Volume 88.5 fL (80.0-100.0); Mean Platelet Volume 8.4 fL (7.0-11.0); Mono # (Auto) 0.7 th/mm3 (0.0-0.9); Mono % (Auto) 8.6 % (0.0-8.0); Neut # (Auto) 6.1 th/mm3 (1.8-7.7); Neut % (Auto) 72.5 % (16.0-70.0); Platelet Count 209 th/mm3 (150-450); Red Blood Count 3.14 mil/mm3 (4.50-5.90); Red Cell Distribution Width 14.8 % (11.6-17.2); White Blood Count 8.4 th/mm3 (4.0-11.0)
[2018-04-28 04:56] LABS: Potassium 3.7 meq/L (3.5-5.1)
[2018-04-28 04:57] LABS: Calcium 8.4 mg/dL (8.5-10.1); Carbon Dioxide 22.7 meq/L (21.0-32.0)
[2018-04-28] MEDS ORDERED: Albumin Human 25% Inj 100 ML IV.SIG STA (08:53)
--- NOTE | 2018-04-28 09:05 | P.PNCV ---
- Note Subjective/Hospital Course: 82-year-old male; intially seen 04/18/[address] Efra Vieyra, Dr. Omar Keith, who has been complaining of some fatigue over the past 6-8 months , he gets tired easily and has some nausea. He denies any chest pain or shortness of breath. He denies any syncope, no palpitations. He underwent cardiac catheterization for atypical exertional symptoms, anginal equivalent. Risk factors including age, hyperlipidemia, former diabetic now diet controlled, hypertension, Cardiac cath revealed a circumflex with 80%, the RCA 90%, the mid distal LAD 75%. He has had a prior echo that was completed on 01/15/2015, which showed an ejection fraction of 55%-60%, mild mitral regurgitation, trace tricuspid regurgitation. 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 Off-pump Coronary Artery Bypass Grafting x 3 with Left Internal Mammary Artery (HUI) to Left Anterior Descending (LAD), reverse saphenous vein graft to obtuse Marginal branch of the left Circumflex artery, reverse saphenous vein graft to the posterior Descending branch of the right Coronary artery 2. Right leg Endoscopic Vein [place] 04/27 Doing well. Extubated and tolerating. On 2 L nasal cannula Hemodynamically stable Transfer to CPCU Maintain chest tubes for now Beta-jimenez therapy Incentive spirometry and ambulation 04/28 Feels nauseated this morning Relative hypotension. Will give gentle hydration EKG unchanged and normal sinus rhythm Maintain chest tubes for now Objective: Vital Signs - 24 hr 04/27/18 09:41 04/27/18 09:42 04/27/18 11:00 Temperature 98.6 F Pulse Rate 80 84 Respiratory Rate 18 18 Blood Pressure 102/54 L Pulse Oximetry 97 94 L 04/27/18 14:02 04/27/18 14:11 04/27/18 14:56 Temperature 97.9 F Pulse Rate 80 81 Respiratory Rate 18 18 Blood Pressure 128/57 L Pulse Oximetry 94 L 94 L 04/27/18 15:00 04/27/18 16:00 04/27/18 17:00 Temperature Pulse Rate 87 95 H 78 Respiratory Rate Blood Pressure Pulse Oximetry 04/27/18 18:00 04/27/18 19:00 04/27/18 20:00 Temperature 97.9 F Pulse Rate 86 80 79 Respiratory Rate 18 Blood Pressure 139/63 Pulse Oximetry 95 95 04/27/18 20:56 04/27/18 21:00 04/27/18 21:41 Temperature Pulse Rate 80 79 Respiratory Rate 16 Blood Pressure Pulse Oximetry 04/27/18 22:04 04/27/18 22:41 04/27/18 23:00 Temperature 98.5 F Pulse Rate 82 77 76 Respiratory Rate 18 18 Blood Pressure 132/66 Pulse Oximetry 95 95 04/28/18 00:00 04/28/18 01:00 04/28/18 02:00 Temperature Pulse Rate 87 82 82 Respiratory Rate Blood Pressure Pulse Oximetry 04/28/18 03:00 04/28/18 04:00 04/28/18 05:00 Temperature 98.1 F Pulse Rate 77 76 75 Respiratory Rate 16 Blood Pressure 111/72 Pulse Oximetry 95 04/28/18 06:00 04/28/18 07:00 Temperature 98.4 F Pulse Rate 85 67 Respiratory Rate 17 Blood Pressure 81/54 L Pulse Oximetry 96 Labs: Laboratory Results - last 12 hr 04/27/18 04/28/18 04/28/18 22:00 02:05 04:00 WBC 8.4 RBC 3.14 L Hgb 9.4 L Hct 27.7 L MCV 88.5 MCH 29.9 MCHC 33.8 RDW 14.8 Plt Count 209 MPV 8.4 Neut % (Auto) 72.5 H Lymph % (Auto) 16.9 [place] % (Auto) 8.6 H Eos % (Auto) 1.8 Baso % (Auto) 0.2 Neut # (Auto) 6.1 Lymph # (Auto) 1.4 [place] # (Auto) 0.7 Eos # (Auto) 0.1 Baso # (Auto) 0.0 WBC Differential . Differential Comment Auto diff final Sodium Potassium Chloride Carbon Dioxide Anion Gap BUN Creatinine Estimated GFR POC Glucose 122 H 116 H Random Glucose Calcium Magnesium 04/28/18 04/28/18 04/28/18 04:00 06:23 08:03 WBC RBC Hgb Hct MCV MCH MCHC RDW Plt Count MPV Neut % (Auto) Lymph % (Auto) [place] % (Auto) Eos % (Auto) Baso % (Auto) Neut # (Auto) Lymph # (Auto) [place] # (Auto) Eos # (Auto) Baso # (Auto) WBC Differential Differential Comment Sodium 135 L Potassium 3.7 Chloride 103 Carbon Dioxide 22.7 Anion Gap 9 BUN 19 H Creatinine 1.30 Estimated GFR 53 L POC Glucose 103 125 H Random Glucose 92 Calcium 8.4 L Magnesium 2.0 Result Diagrams: 04/28/18 04:00 04/28/18 04:00
[2018-04-28] MEDS: Polyethylene Glycol 3350 17 GM Packet PO SCH (10:00)
[2018-04-28] MEDS: Multivitamin/Minerals Therapeutic Tablet PO SCH (10:00)
[2018-04-28] MEDS: Docusate Sodium 100 MG Capsule PO SCH ×2 (10:01→21:24)
[2018-04-28] MEDS: Fenofibrate 145 MG Tablet PO SCH (10:01)
[2018-04-28] MEDS: Carvedilol 12.5 MG Tablet PO SCH ×2 (10:02→21:23)
[2018-04-28] MEDS: Amiodarone 200 MG Tablet PO SCH (10:02)
--- NOTE | 2018-04-28 15:52 | ECG ---
Date Performed: 04/27/2018 Time Performed: 15:43:06 PTAGE: 82 years EKG: Sinus rhythm with PVC(s) Inferior infarct - age undetermined Abnormal ECG Since PREVIOUS TRACING , no significant change noted PREVIOUS TRACIN04/27/2018 07.28 DOCTOR: Tito Llanos Interpretating Date/Time 04/28/2018 15:51:25
[2018-04-29] MEDS: Docusate Sodium 100 MG Capsule PO SCH ×2 (09:42→22:15)
[2018-04-29] MEDS: Carvedilol 12.5 MG Tablet PO SCH ×2 (09:42→22:18)
[2018-04-29] MEDS: Fenofibrate 145 MG Tablet PO SCH (09:43)
[2018-04-29] MEDS: Insulin NovoLOG Aspart Correctional Sugar Inj SQ SCH ×4 (09:43→22:32)
[2018-04-29] MEDS: Polyethylene Glycol 3350 17 GM Packet PO SCH (09:44)
[2018-04-29] MEDS: Multivitamin/Minerals Therapeutic Tablet PO SCH (09:45)
--- NOTE | 2018-04-29 10:48 | P.PNCV ---
- Note Subjective/Hospital Course: 82-year-old male; intially seen 04/18/[address] Efra Vieyra, Dr. Omar Keith, who has been complaining of some fatigue over the past 6-8 months , he gets tired easily and has some nausea. He denies any chest pain or shortness of breath. He denies any syncope, no palpitations. He underwent cardiac catheterization for atypical exertional symptoms, anginal equivalent. Risk factors including age, hyperlipidemia, former diabetic now diet controlled, hypertension, Cardiac cath revealed a circumflex with 80%, the RCA 90%, the mid distal LAD 75%. He has had a prior echo that was completed on 01/15/2015, which showed an ejection fraction of 55%-60%, mild mitral regurgitation, trace tricuspid regurgitation. 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 Off-pump Coronary Artery Bypass Grafting x 3 with Left Internal Mammary Artery (HUI) to Left Anterior Descending (LAD), reverse saphenous vein graft to obtuse Marginal branch of the left Circumflex artery, reverse saphenous vein graft to the posterior Descending branch of the right Coronary artery 2. Right leg Endoscopic Vein [place] 04/27 Doing well. Extubated and tolerating. On 2 L nasal cannula Hemodynamically stable Transfer to CPCU Maintain chest tubes for now Beta-jimenez therapy Incentive spirometry and ambulation 04/28 Feels nauseated this morning Relative hypotension. Will give gentle hydration EKG unchanged and normal sinus rhythm Maintain chest tubes for now 04/29 occasional dry cough chest tube removed without difficulty BP stable will check CXR this afternoon continue nebs possible dc in am Objective: Vital Signs - 24 hr 04/28/18 11:00 04/28/18 13:29 04/28/18 15:00 Temperature 98.3 F 98.6 F Pulse Rate 64 67 75 Respiratory Rate 17 17 17 Blood Pressure 143/66 H 112/58 L Pulse Oximetry 96 04/28/18 16:00 04/28/18 17:00 04/28/18 17:13 Temperature Pulse Rate 78 79 74 Respiratory Rate 20 Blood Pressure Pulse Oximetry 04/28/18 17:14 04/28/18 18:00 04/28/18 19:00 Temperature 98.5 F Pulse Rate 86 73 Respiratory Rate 16 Blood Pressure 120/62 Pulse Oximetry 97 96 04/28/18 19:02 04/28/18 20:00 04/28/18 20:28 Temperature Pulse Rate 86 74 Respiratory Rate 18 20 Blood Pressure Pulse Oximetry 96 04/28/18 21:00 04/28/18 22:00 04/28/18 23:00 Temperature 97.9 F Pulse Rate 75 73 84 Respiratory Rate 16 Blood Pressure 104/57 L Pulse Oximetry 96 04/29/18 00:00 04/29/18 01:00 04/29/18 01:14 Temperature Pulse Rate 73 78 88 Respiratory Rate 18 Blood Pressure Pulse Oximetry 04/29/18 02:00 04/29/18 02:48 04/29/18 03:00 Temperature 98 F Pulse Rate 71 76 69 Respiratory Rate 16 Blood Pressure 112/54 L Pulse Oximetry 96 04/29/18 04:00 04/29/18 04:16 04/29/18 05:00 Temperature Pulse Rate 73 81 71 Respiratory Rate 18 Blood Pressure Pulse Oximetry 04/29/18 05:53 04/29/18 07:00 04/29/18 08:00 Temperature 98.4 F Pulse Rate 75 59 L 70 Respiratory Rate 17 Blood Pressure 147/68 H Pulse Oximetry 100 94 L 04/29/18 09:00 04/29/18 10:00 Temperature Pulse Rate 79 77 Respiratory Rate Blood Pressure Pulse Oximetry Labs: Laboratory Results - last 12 hr 04/26/18 04/29/18 06:15 07:44 POC Glucose 128 H MTS Gel Crossmatch See Detail Result Diagrams: 04/28/18 04:00 04/28/18 04:00 Telemetry: NSR - Plan (2) Hyperlipidemia Plan: on statin (5) S/P CABG x 3 Plan: ASA, statin , BB amiodarone. chest tube dc pulm toileting OOB ambualte, CM to eval for HHC
--- NOTE | 2018-04-29 13:39 | ECG ---
Date Performed: 04/28/2018 Time Performed: 08:33:42 PTAGE: 82 years EKG: Sinus rhythm Possible inferior infarct - age undetermined Low QRS voltages in precordial leads Abnormal ECG PREVIOUS TRACING : 04/27/2018 15.43 Since the previous tracing, no significant change noted DOCTOR: Abner Pabon Interpretating Date/Time 04/29/2018 13:39:03
--- NOTE | 2018-04-29 13:40 | XR ---
EXAM DATE: 04/29/2018 12:00 PM EDT AGE/SEX: 83 years / Male INDICATIONS: Chest tube removal. CLINICAL DATA: This is the patient's subsequent encounter. Patient reports that signs and symptoms h ave been present for 4 - 6 days and indicates a pain score of 0/10. MEDICAL/SURGICAL HISTORY: . Gastroesophageal reflux disease. Cardiovascular disease. Hypertensi on. Carcinoma, skin cancer. Gutierrez's esophagus. CABG. COMPARISON: [facility] – [place], CHEST 1V SINGLE AP, 04/27/2018. . FINDINGS: A single AP view of the chest demonstrates no pneumothorax following left-sided thoracostomy tube rem oval. Low lung volumes noted. Small left pleural effusion. Cardiomegaly with mild pulmonary vascular engorgement. Median sternotomy wires. CONCLUSION: No pneumothorax following left chest tube removal. Electronically signed by: Sukhjinder Soliz MD 04/29/2018 1:38 PM EDT
[2018-04-29] MEDS: Amiodarone 200 MG Tablet PO SCH (22:15)
[2018-04-30 04:36] LABS: Calcium 8.2 mg/dL (8.5-10.1); Carbon Dioxide 28.7 meq/L (21.0-32.0); Magnesium 2.3 mg/dL (1.5-2.5); Potassium 3.8 meq/L (3.5-5.1)
[2018-04-30] MEDS: Insulin NovoLOG Aspart Correctional Sugar Inj SQ SCH ×2 (08:00→12:22)
[2018-04-30] MEDS: Polyethylene Glycol 3350 17 GM Packet PO SCH (09:20)
[2018-04-30] MEDS: Carvedilol 12.5 MG Tablet PO SCH (09:22)
[2018-04-30] MEDS: Fenofibrate 145 MG Tablet PO SCH (09:22)
[2018-04-30] MEDS: Multivitamin/Minerals Therapeutic Tablet PO SCH (09:22)
[2018-04-30] MEDS: Amiodarone 200 MG Tablet PO SCH (09:22)
[2018-04-30] MEDS: Docusate Sodium 100 MG Capsule PO SCH (09:23)
[2018-04-30 09:33] VITALS: O2SAT 95
[2018-04-30 11:24] VITALS: BP 121/59; RESP 16; TEMP 98
--- NOTE | 2018-04-30 12:08 | P.DS ---
Date of admission: 04/26/18 05:17 Primary care physician: Efra Vieyra MD Attending physician on discharge: Bee Oleary Anticipated date of discharge: 04/30/18 Brief History from admission: 82-year-old male; intially seen 04/18/[address] Efra Vieyra, Dr. Omar Keith, who has been complaining of some fatigue over the past 6-8 months , he gets tired easily and has some nausea. He denies any chest pain or shortness of breath. He denies any syncope, no palpitations. He underwent cardiac catheterization for atypical exertional symptoms, anginal equivalent. Risk factors including age, hyperlipidemia, former diabetic now diet controlled, hypertension, Cardiac cath revealed a circumflex with 80%, the RCA 90%, the mid distal LAD 75%. He has had a prior echo that was completed on 01/15/2015, which showed an ejection fraction of 55%-60%, mild mitral regurgitation, trace tricuspid regurgitation. 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 now diet controlled, gastroesophageal reflux disease, hypertension, hyperlipidemia, lumbar radiculopathy, TIA , CKD pt electively admitted for surgery: Patient update on day of discharge: pt doing well diuresed, on room air still has some faint crackles in left base in NSR RX for amiodarone bid x 1 week dc home with [facility] DS: Diagnosis - Discharge Diagnosis (1) CAD (coronary artery disease), [place] coronary artery Status: Acute (2) Hyperlipidemia Status: Chronic (3) Hypertension Status: Chronic (4) Chronic kidney disease Status: Chronic (5) S/P CABG x 3 Status: Acute (6) Diabetes mellitus Status: Acute DS: Medications - Discharge Medications Prescriptions: amiodarone 200 mg PO BID #14 tab clopidogrel [Plavix] 75 mg PO DAILY #30 tab furosemide [Lasix] 40 mg PO DAILY #5 tab hydrocodone-acetaminophen 1 tab PO Q4H PRN #20 tab PRN Reason: Pain Scale 1 To 5 zgpmnllk-huzd-YO-calcium-mins [Thera M Plus (ferrous fumarat)] 1 tab PO DAILY # 30 tab potassium chloride 20 meq PO DAILY #5 ea DS: Summary Hospital Course: pt electively admitted for surgery: 10/12 SURGICAL PROCEDURE 1. Off-pump Coronary Artery Bypass Grafting x 3 with Left Internal Mammary Artery (HUI) to Left Anterior Descending (LAD), reverse saphenous vein graft to obtuse Marginal branch of the left Circumflex artery, reverse saphenous vein graft to the posterior Descending branch of the right Coronary artery 2. Right leg Endoscopic Vein [place] 04/27 Doing well. Extubated and tolerating. On 2 L nasal cannula Hemodynamically stable Transfer to [facility] Maintain chest tubes for now Beta-jimenez therapy Incentive spirometry and ambulation 04/28 Feels nauseated this morning Relative hypotension. Will give gentle hydration EKG unchanged and normal sinus rhythm Maintain chest tubes for now 04/29 occasional dry cough chest tube removed without difficulty BP stable will check CXR this afternoon continue nebs possible dc in am 04/30 stable for dc on room air diuresed with lasix yesterday remains in NSR dc with HHC - Time Spent with Patient Total time spent providing and/or coordinating discharge services: Greater than 30 minutes - Quality: VTE Deep Vein Thrombosis/Pulmonary Embolism Present on Admission: No Exam Vital signs: Vital Signs 04/29/18 12:00 04/29/18 13:00 04/29/18 13:15 Temperature Pulse Rate 79 78 73 Respiratory Rate 16 Blood Pressure Pulse Oximetry 04/29/18 15:00 04/29/18 15:52 04/29/18 16:00 Temperature 98.5 F Pulse Rate 74 76 Respiratory Rate 18 15 Blood Pressure 106/60 Pulse Oximetry 94 L 04/29/18 17:00 04/29/18 18:00 04/29/18 19:00 Temperature 98.2 F Pulse Rate 78 78 74 Respiratory Rate 17 Blood Pressure 120/60 Pulse Oximetry 92 L 04/29/18 20:00 04/29/18 20:20 04/29/18 21:00 Temperature Pulse Rate 70 72 Respiratory Rate 16 Blood Pressure Pulse Oximetry 96 04/29/18 22:00 04/29/18 22:45 04/29/18 23:00 Temperature 98.3 F Pulse Rate 82 76 Respiratory Rate 16 17 Blood Pressure 126/59 L Pulse Oximetry 94 L 04/30/18 00:00 04/30/18 01:00 04/30/18 02:00 Temperature Pulse Rate 70 64 66 Respiratory Rate Blood Pressure Pulse Oximetry 04/30/18 03:00 04/30/18 04:00 04/30/18 05:00 Temperature 98.4 F Pulse Rate 63 64 64 Respiratory Rate 17 Blood Pressure 130/61 Pulse Oximetry 96 04/30/18 06:00 04/30/18 06:34 04/30/18 07:00 Temperature 98.2 F Pulse Rate 62 66 Respiratory Rate 16 17 Blood Pressure 136/64 Pulse Oximetry 98 04/30/18 08:00 04/30/18 08:29 04/30/18 09:00 Temperature Pulse Rate 66 76 Respiratory Rate Blood Pressure Pulse Oximetry 98 04/30/18 09:31 04/30/18 10:00 04/30/18 11:00 Temperature 98.0 F Pulse Rate 62 62 63 Respiratory Rate 18 16 Blood Pressure 121/59 L Pulse Oximetry 95 Intake & Output 04/29/18 04/30/18 04/30/18 18:59 06:59 18:59 Intake Total 480 / 480 480 / 480 Output Total 1200 / 1200 840 / 840 Balance -720 / -720 -360 / -360 Weight 93 kg Intake: Oral 480 / 480 480 / 480 Output: Urine 1200 / 1200 840 / 840 Other: Date of Last Bowel Movement 04/29/18 04/29/18 04/29/18 # Bowel Movements 1 - Constitutional no acute distress - Routine HEENT Exam Head: Present: normocephalic, atraumatic Eye: Present: EOMI, PERRL, normal accommodation - Routine Neck Exam Present: supple, full ROM - Routine Chest/Breast/Axilla Exam Chest wall: Present: tenderness - Routine Respiratory Exam Comments: slightly diminished left lower lobe , faint crackles - Routine Cardiovascular Exam Present: RRR, S1, S2 - Routine Abdominal Exam Present: soft, normoactive bowel sounds - Routine Extremities Exam Present: full ROM, pulses intact, normal capillary refill - Routine Skin Exam Present: intact, wounds Comments: prevena dressing to chest - Routine Neurological Exam Present: alert, oriented X3, CN II-XII intact Results Procedures completed during hospitalization: PREPROCEDURE DIAGNOSES 1. Severe Multi Vessel Coronary Artery Disease. 2. Chronic kidney disease POSTPROCEDURE DIAGNOSES Same SURGICAL PROCEDURE 1. Off-pump Coronary Artery Bypass Grafting x 3 with Left Internal Mammary Artery (HUI) to Left Anterior Descending (LAD), reverse saphenous vein graft to obtuse Marginal branch of the left Circumflex artery, reverse saphenous vein graft to the posterior Descending branch of the right Coronary artery 2. Right leg Endoscopic Vein [place] 3. Intraoperative Vein Mapping. Labs on day of discharge: Labs from last 24 hours 04/30/18 04/30/18 04/29/18 11:12 04:06 22:26 Sodium 138 Potassium 3.8 Chloride 102 Carbon Dioxide 28.7 Anion Gap 7 BUN 26 H Creatinine 1.58 H Estimated GFR 42 L POC Glucose 138 H 174 H Random Glucose 95 Calcium 8.2 L Magnesium 2.3 - Impressions ITS Impressions Chest X-Ray 04/29/18 12:00 CONCLUSION: No pneumothorax following left chest tube removal. Discharge Plan - Discharge Disposition Patient Disposition: Disch W/Home Health Service - Discharge Condition Condition: Good - Discharge Order Discharge Orders: Discharge Order (Routine); Ordered 04/30/18 Ordered By: Morenita Vargas - Physicians Team Primary Care Provider: Efra Vieyra Attending Provider: Bee Oleary Other Providers: Clay Castañeda DO ; [facility] - Rxs /Orders / Referrals /Forms Prescriptions: New amiodarone 100 mg Tablet 200 mg PO BID Qty: 14 RF: 0 clopidogrel [Plavix] 75 mg Tablet 75 mg PO DAILY Qty: 30 RF: 2 furosemide [Lasix] 20 mg Tablet 40 mg PO DAILY Qty: 5 RF: 0 hydrocodone-acetaminophen 5-325 mg Tablet 1 tab PO Q4H PRN (Reason: Pain Scale 1 To 5) Qty: 20 RF: 0 xcfwanhv-qjjx-XP-calcium-mins [Thera M Plus (ferrous fumarat)] 9 mg iron-400 mcg Tablet 1 tab PO DAILY Qty: 30 RF: 2 potassium chloride 20 mEq Packet 20 meq PO DAILY Qty: 5 RF: 0 Continue acetaminophen 500 mg Tablet 1,000 mg PO Q6H PRN (Reason: Pain) ascorbic acid (vitamin C) [Vitamin C] 500 mg Tablet 500 mg PO DAILY aspirin [Aspirin Low Dose] 81 mg Tablet,Delayed Release (Dr/Ec) 81 mg PO DAILY biotin 10,000 mcg Tablet,Disintegrating 10,000 mcg PO DAILY calcium carbonate-vitamin D3 [Calcium 600 + D(3)] 600 mg(1,500mg) -400 unit Tablet 1 tab PO DAILY carvedilol 12.5 mg Tablet 12.5 mg PO BID cholecalciferol (vitamin D3) [Vitamin D3] 2,000 unit Tablet 2,000 unit PO BID coenzyme Q10 [Co Q-10] 100 mg Capsule 100 mg PO DAILY dextran 70-hypromellose [Artificial Tears (PF)] Dropperette 1 drp OPHTHALMIC (EYE) DAILY PRN (Reason: Dry Eye(S)) diazepam 10 mg Tablet 10 mg PO BID PRN (Reason: Insomnia) fenofibrate 150 mg Capsule 150 mg PO DAILY fluticasone 50 mcg/actuation Blister With Device 1 inh INHALATION Q12H ipratropium bromide 0.03 % [place],Non-Aerosol 2 spray INTRANASAL BID Lactobacillus acidophilus [Probiotic] 10 billion cell Capsule omeprazole 20 mg Capsule,Delayed Release(Dr/Ec) 40 mg PO DAILY polyethylene glycol 3350 [Miralax] 17 gram Powder In Packet 17 g PO DAILY PRN (Reason: Constipation) rosuvastatin 10 mg Tablet 10 mg PO WEEKLY tramadol 50 mg Tablet 100 mg PO Q4-6H PRN (Reason: Pain) wheat dextrin [Benefiber Healthy Shape] 5 gram/7.4 gram Powder 2 tsp PO DAILY Discontinued lisinopril 20 mg Tablet 20 mg PO BID Ambulatory Orders / Order Sets / DME: Commode 3in (1 each) (Routine) Location: Determined by Patient Ordered By: Morenita Vargas XR chest 2V PA&LAT (Routine) Timeframe: 2 Weeks Location: Determined by Patient Ordered By: Morenita Vargas Basic Metabolic Panel (Routine) Timeframe: 2 Weeks Location: Determined by Patient Ordered By: Morenita Vargas Referrals: Efra Vieyra MD [Primary Care Provider] - See Instructions ( Your appointment has been scheduled for [05/15/18] at [1:15 pm] If you cannot make this appointment, please call the office to reschedule ) Morenita Vargas [ADVANCE RN PRACTITIONER] - See Instructions ( Your appointment has been scheduled for [05/14/18] at [10:30 am] If you cannot make this appointment, please call the office to reschedule ) Clay Castañeda DO [Physician] - See Instructions ( Your appointment has been scheduled for [05/30/18] at [9:30 am] If you cannot make this appointment, please call the office to reschedule ) - Discharge Instructions Patient Printed Instructions: Furosemide (By mouth), Hydrocodone/Acetaminophen (By mouth), Potassium Chloride (By mouth), Amiodarone (By mouth), Multivitamins with Minerals (By mouth), Clopidogrel (By mouth), Acute Wound Care (DC), Sternal Precautions (GEN), Coronary Artery Bypass Graft (DC) Additional Instructions: HOME HEALTH CARE HAS BEEN ARRANGED WITH 'S CHOICE, CONTACT#[phone] PREVENA Single Use Negative Wound Therapy System Caregiver Instruction Sheet 1. A Prevena dressing system was applied to the chest incision during surgery , to promote wound healing. It works via a suction device (negative pressure wound therapy) to remove low to moderate levels of exudate (drainage) and infectious materials. We recommend that the device stay in place for up to seven days, from day of surgery. 2. Day of Surgery___/07/02 Day of Removal __05/03/18 3. The dressing should only be removed by a health healthcare management. Please arrange removal of device to coincide with Home Health visit and or with Nursing staff at Rehab 4. If skin reddening or irritation of skin occurs, or excessive drainage, please notify the Cardiovascular Surgeons office at [phone]. 5. Light showering is permissible; however the pump should be disconnected and placed in safe location, where it will not get wet. The dressing should not be exposed to direct spray or submerged in water. No bath tub / shower only. Ensure the end of the tubing attached to the dressing is facing down so that water does not enter the top of the tube. 6. To remove Prevena dressing: press purple button to turn off device / remove the suction. Then disconnect the tubing from the pump. The fixation strips should be stretched away from the skin and the dressing lifted at one corner and peeled back until it has been fully removed. 7. After removal, it is ok to shower daily using liquid dial soap and clean wash cloth, rinse and pat dry, and leave incision open to air dry. For any concerns regarding Prevena dressing, and or wounds, please contact Jaki Guadarrama, patient navigator at [phone] or notify the Cardiovascular Surgeons office at [phone]. Incentive spirometry Q1 hr x 10, while awake, also use acapella device hourly whole awake Sternal Breast Bone Precautions: NO pushing or pulling, ( pt must use sternal pillow to support chest with all activities and with coughing ( takes up to 3 months breast bone to heal ) Daily incision care: ok to shower daily, no tub bath. Wash all incisions with liquid dial soap, clean wash cloth to each site, rinse and pat dry. Observe for any signs of infection, such as drainage which is dark yellow, goldman, green or foul smelling. Immediately report to the surgeon any drainage from the chest incision, or legs, and for any abnormal drainage from the chest tube sites. Notify surgeon if any temp >101.5 degrees F. When specialty dressing removed/ or if you do not have one, continue to shower daily as above, then rinse and pat incision dry and paint with betadine daily x 5 days. Allow steri strips to fall off if you have any. Avoid lotions, creams, salves, oils, etc. for the first month Please see attached forms for additional instructions regarding post Open Heart specialty wound vacuum dressings. CHAPO or Prevena , Dressing to be removed by Nursing staff on __/ F/U appointment: as per MD instructions: PCP in 2 weeks, CV surgeon 2 weeks, Medication Nurse 3-4 weeks For any questions regarding incisions/ dressing / meds / post op care or above Symptoms, Sunday 8am-5pm Heart & Vascular Surgery Office ( Dr. Oleary & Dr. Kapadia), After Hours / Nights (5pm -8am) Weekends and Holidays Please call [facility] Cardiac Intermediate Care Unit ([facility]) Charge Nurse
[2018-04-30 14:18] VITALS: PULSE 62
== END 2018-04-30 14:00 | disposition home health service (06) ==
LOC: HSDI 05:17 → HCVI 12:05 → HCPC 04-27 14:12
PROVIDERS: ADMIT Thoracic Surgery (Cardiothoracic Vascular Surgery); ATTEND Thoracic Surgery (Cardiothoracic Vascular Surgery)